=== PATIENT | male | born 1970 | race Caucasian/White ===

== ENCOUNTER → 2021-04-23 12:06 | Outpatient (CLI) | payer OTHER, SELFPAY ==
--- NOTE | 2021-04-23 | DI.MRI.S_ITS ---
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 Post-contrast short axis, long axis, and sagittal T1 spin echo with fat saturation through the forefoot. COMPARISON: None. FINDINGS: Image quality: Excellent. Bones and joints: A 3.3 mm T2 hyperintense/T1 hypointense lesion is seen at the medial base of the 1st distal phalanx. Heterogeneous signal in the hallux sesamoids without substantial edema, which likely reflects degenerative change. The remaining visualized osseous structures appear maintained. No metatarsal stress fractures. No significant metatarsophalangeal joint degeneration. Soft tissues: Confluent T2 hyperintense signal is seen along the medial aspect of the 1st metatarsal, measuring 3.3 x 1.4 x 0.5 cm (series 8, image 33), which may reflect edema/fluid. No contrast enhancement is appreciated to suggest an abscess. A 1.7 x 0.7 x 0.9 cm T1 hypointense/T2 hyperintense lesion is seen underlying the medial hallux sesamoid (series 8, image 31), which exhibits faint contrast enhancement and may represent phlegmon or hematoma. Intermediate signal is seen in the medial aspect of the 1st distal phalanx subcutaneous fat, which exhibits contrast enhancement and may reflect reactive edema versus an infectious process. The visualized plantar foot muscles demonstrate normal signal and bulk. The visualized flexor and extensor tendons appear intact, without tenosynovitis. The distal insertions of the peroneus brevis and longus tendons appear intact. The principal Lisfranc ligament appears intact. Sagittal images demonstrate no evidence for plantar plate tears. IMPRESSION: 1. 3.3 mm cystic change in the medial aspect of the 1st distal phalanx base, which may reflect an erosion. An infectious or posttraumatic process cannot be excluded. 2. Edematous change with contrast enhancement in the medial soft tissues of the 1st distal phalanx. Differential considerations include an infectious, posttraumatic, or inflammatory process. 3. Fluid signal along the medial aspect of the 1st metatarsal, which may reflect a hematoma or developing blister. 4. Lesion underlying the medial hallux sesamoid as detailed above, which may reflect phlegmon or hematoma. Dictated by: Zohaib Nichols M.D. on 04/23/2021 at 17:06 Approved by: Zohaib Nichols M.D. on 04/23/2021 at 17:25
== END ==
PROVIDERS: Referring Provider Podiatrist; Visit Provider Podiatrist
DX: D21.22 Benign neoplasm of connective and other soft tissue of left lower limb, including hip (principal)
CPT/HCPCS: 73720; A9579

== ENCOUNTER → 2021-05-11 09:20 | Outpatient (CLI) | payer OTHER, SELFPAY ==
[2021-05-11 10:24] LABS: Alanine Aminotransferase 30 IU/L (<50); Albumin 4.5 g/dL (3.5-5.0); Albumin Globulin Ratio 1.5 (1.0-2.8); Alkaline Phosphatase 65 U/L (38-126); Aspartate Aminotransferase 37 IU/L (17-59); BUN Creatinine Ratio 9.5 (6-22); Bilirubin Total 0.7 mg/dL (0.2-1.3); Blood Urea Nitrogen 9 mg/dL (9-20); Calcium 9.5 mg/dL (8.4-10.2); Carbon Dioxide 29 mmol/L (22-32); Chloride 104 mmol/L (98-107); Cholesterol 202 mg/dL (140-199); Estimated Glomerular Filt Rate > 60.0 mL/min (>60); Globulin 3.1 g/dL (1.7-4.1); Glucose 91 mg/dL (70-100); HDL Cholesterol 97 mg/dL (40-60); HEMOLYSIS < 15 (0-50); Hematocrit 44.6 % (41-53); Hemoglobin 15.2 g/dL (13.5-17.5); LDL Cholesterol Calculated 86 mg/dL (<100); Mean Corpuscular HGB Conc 34.1 % (30-36); Mean Corpuscular Hemoglobin 31.3 PG (26-34); Mean Corpuscular Volume 91.9 fL (80-100); Potassium 4.4 mmol/L (3.4-5.1); Red Blood Cell Count 4.86 X10^6/uL (4.5-5.9); Red Cell Distribution Width 13.3 % (11.6-14.8); Sodium 139 mmol/L (137-145); Total Protein 7.6 g/dL (6.3-8.2); Triglycerides 97 mg/dL (35-150)
[2021-05-11 10:52] LABS: Prostate Specific Antigen Scrn 0.654 ng/mL (0.1-4.0)
[2021-05-11 10:56] LABS: TSH w/ Reflex to FT4 1.18 uIU/mL (0.47-4.68)
[2021-05-11 11:29] LABS: Add Manual Diff / Slide Review YES
[2021-05-11 12:10] LABS: Neutrophils Absolute Manual 3710 /uL (3000-5900); Total Cells Counted 100
== END ==
PROVIDERS: PCP Family Medicine; Referring Provider Family Medicine; Visit Provider Family Medicine
DX: R00.2 Palpitations (principal); Z12.5 Encounter for screening for malignant neoplasm of prostate
CPT/HCPCS: 36415; 80053; 80061; 84443; 85007; 85025; G0103

== ENCOUNTER → 2021-06-04 11:35 | Outpatient (CLI) | payer OTHER, SELFPAY ==
--- NOTE | 2021-06-25 09:02 | PM.CARDMON.1 ---
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 Referral & Results Date Patient Seen: 06/04/21 Requesting provider: Anmol Dickens Indication: Palpitations Duration of monitoring (days): 7 Diary information: There was 1 patient triggered event and 1 patient diary entry Both these patient events were associated with sinus rhythm only Data: Minimum heart rate identified was 49 beats per minute at 00:48 on 06/06/2021 Maximum sinus heart rate was 151 beats per minute at 15:53 on 06/10/2021 Maximum overall heart rate was 156 beats per minute at 00:02 on 06/11/2021 during a 5 beat run of SVT Less than 1% of identified beats were ventricular or supraventricular ectopic in origin, which would classify them as rare. 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
== END ==
PROVIDERS: PCP Family Medicine; Referring Provider Family Medicine; Visit Provider Family Medicine
DX: R00.2 Palpitations (principal)
CPT/HCPCS: 93242; 93244

== ENCOUNTER → 2021-06-12 09:43 | Outpatient (CLI) | payer OTHER, SELFPAY ==
[2021-06-12 11:31] LABS: Add Manual Diff / Slide Review NO; Basophils Absolute Auto 0 /uL (0-100); Basophils Percent Auto 0.6 % (0-2); Eosinophils Absolute Auto 100 /uL (0-450); Hematocrit 41.4 % (41-53); Hemoglobin 14.1 g/dL (13.5-17.5); Lymphocytes Absolute Auto 2400 /uL (1100-4500); Lymphocytes Percent Auto 37.1 % (25-40); Mean Corpuscular Hemoglobin 30.9 PG (26-34); Mean Corpuscular Volume 90.9 fL (80-100); Monocytes Absolute Auto 600 /uL (0-900); Monocytes Percent Auto 9.2 % (3-14); Neutrophils Absolute Auto 3300 /uL (1500-7000); Neutrophils Percent Auto 51.1 % (50-75); Red Blood Cell Count 4.56 X10^6/uL (4.5-5.9); Red Cell Distribution Width 12.2 % (11.6-14.8); White Blood Cell Count 6.5 X10^3/uL (4.5-11.0)
== END ==
PROVIDERS: PCP Family Medicine; Referring Provider Family Medicine; Visit Provider Family Medicine
DX: D72.89 Other specified disorders of white blood cells (principal)
CPT/HCPCS: 36415; 85025

== ENCOUNTER → 2021-09-19 13:24 | Outpatient (CLI) | payer OTHER, SELFPAY ==
[2021-09-19 14:53] LABS: Basophils Absolute Auto 100 /uL (0-100); Basophils Percent Auto 0.9 % (0-2); Eosinophils Absolute Auto 100 /uL (0-450); Eosinophils Percent Auto 0.9 % (2-4); Hematocrit 45.3 % (41-53); Hemoglobin 15.4 g/dL (13.5-17.5); Lymphocytes Absolute Auto 2000 /uL (1100-4500); Lymphocytes Percent Auto 27.6 % (25-40); Mean Corpuscular HGB Conc 34.1 % (30-36); Mean Corpuscular Volume 90.9 fL (80-100); Monocytes Absolute Auto 500 /uL (0-900); Monocytes Percent Auto 6.9 % (3-14); Neutrophils Absolute Auto 4700 /uL (1500-7000); Neutrophils Percent Auto 63.7 % (50-75); Red Blood Cell Count 4.98 X10^6/uL (4.5-5.9); Red Cell Distribution Width 13.2 % (11.6-14.8); White Blood Cell Count 7.3 X10^3/uL (4.5-11.0)
[2021-09-19 15:13] LABS: Add Manual Diff / Slide Review SLIDE REVIEW
[2021-09-19 15:27] LABS: Alanine Aminotransferase 32 IU/L (<50); Albumin 4.7 g/dL (3.5-5.0); Albumin Globulin Ratio 1.6 (1.0-2.8); Alkaline Phosphatase 69 U/L (38-126); Aspartate Aminotransferase 38 IU/L (17-59); BUN Creatinine Ratio 7.9 (6-22); Bilirubin Total 0.7 mg/dL (0.2-1.3); Blood Urea Nitrogen 8 mg/dL (9-20); Carbon Dioxide 28 mmol/L (22-32); Chloride 102 mmol/L (98-107); Cholesterol 205 mg/dL (140-199); Estimated Glomerular Filt Rate > 60.0 mL/min (>60); Glucose 98 mg/dL (70-100); HDL Cholesterol 97 mg/dL (40-60); HEMOLYSIS < 15 (0-50); LDL Cholesterol Calculated 85 mg/dL (<100); Potassium 4.2 mmol/L (3.4-5.1); Sodium 139 mmol/L (137-145); Total Protein 7.7 g/dL (6.3-8.2); Triglycerides 115 mg/dL (35-150); VLDL Cholesterol Calculated 23 mg/dL (2-30)
[2021-09-19 15:35] LABS: Platelet Estimate Adequate on smear; RBC Morphology Normal Morphology
== END ==
PROVIDERS: PCP Family Medicine; Referring Provider Physician Assistant Medical; Visit Provider Physician Assistant Medical
DX: L70.0 Acne vulgaris (principal); L24.89 Irritant contact dermatitis due to other agents; L02.02 Furuncle of face; L73.2 Hidradenitis suppurativa; L73.0 Acne keloid; Z79.899 Other long term (current) drug therapy
CPT/HCPCS: 36415; 80053; 80061; 85025

== ENCOUNTER → 2021-10-30 09:25 | Outpatient (CLI) | payer OTHER, SELFPAY ==
[2021-10-30 10:50] LABS: Add Manual Diff / Slide Review NO; Basophils Absolute Auto 100 /uL (0-100); Basophils Percent Auto 1.1 % (0-2); Eosinophils Absolute Auto 100 /uL (0-450); Eosinophils Percent Auto 2.3 % (2-4); Hematocrit 43.6 % (41-53); Hemoglobin 14.9 g/dL (13.5-17.5); Lymphocytes Absolute Auto 1900 /uL (1100-4500); Lymphocytes Percent Auto 30.6 % (25-40); Mean Corpuscular HGB Conc 34.3 % (30-36); Mean Corpuscular Volume 90.5 fL (80-100); Monocytes Absolute Auto 500 /uL (0-900); Monocytes Percent Auto 8.4 % (3-14); Neutrophils Absolute Auto 3600 /uL (1500-7000); Neutrophils Percent Auto 57.6 % (50-75); Platelet Count 231 X10^3/uL (150-400); Red Blood Cell Count 4.82 X10^6/uL (4.5-5.9); White Blood Cell Count 6.2 X10^3/uL (4.5-11.0)
[2021-10-30 11:02] LABS: Alanine Aminotransferase 39 IU/L (<50); Albumin 4.5 g/dL (3.5-5.0); Albumin Globulin Ratio 1.3 (1.0-2.8); Alkaline Phosphatase 71 U/L (38-126); Aspartate Aminotransferase 49 IU/L (17-59); BUN Creatinine Ratio 7.3 (6-22); Bilirubin Total 0.5 mg/dL (0.2-1.3); Blood Urea Nitrogen 7 mg/dL (9-20); Calcium 9.4 mg/dL (8.4-10.2); Carbon Dioxide 30 mmol/L (22-32); Chloride 103 mmol/L (98-107); Cholesterol 193 mg/dL (140-199); Estimated Glomerular Filt Rate > 60 mL/min (>60); Globulin 3.4 g/dL (1.7-4.1); Glucose 103 mg/dL (70-100); HDL Cholesterol 74 mg/dL (40-60); HEMOLYSIS < 15 (0-50); LDL Cholesterol Calculated 99 mg/dL (<100); Potassium 4.2 mmol/L (3.4-5.1); Sodium 138 mmol/L (137-145); Total Protein 7.9 g/dL (6.3-8.2); Triglycerides 98 mg/dL (35-150)
[2021-10-30 11:13] LABS: LDL Cholesterol Direct 79 mg/dL (<100)
== END ==
PROVIDERS: PCP Family Medicine; Referring Provider Physician Assistant Medical; Visit Provider Physician Assistant Medical
DX: L70.0 Acne vulgaris (principal); L24.89 Irritant contact dermatitis due to other agents; L02.02 Furuncle of face; L02.12 Furuncle of neck; Z79.899 Other long term (current) drug therapy; L73.2 Hidradenitis suppurativa; L73.0 Acne keloid
CPT/HCPCS: 36415; 80053; 80061; 83721; 85025

== ENCOUNTER → 2021-11-23 09:49 | Outpatient (CLI) | payer OTHER, SELFPAY ==
[2021-11-23 10:54] LABS: Add Manual Diff / Slide Review NO; Basophils Absolute Auto 0 /uL (0-100); Eosinophils Absolute Auto 100 /uL (0-450); Eosinophils Percent Auto 3.1 % (2-4); Hematocrit 43.9 % (41-53); Hemoglobin 15.2 g/dL (13.5-17.5); Lymphocytes Absolute Auto 2100 /uL (1100-4500); Lymphocytes Percent Auto 45.5 % (25-40); Mean Corpuscular HGB Conc 34.7 % (30-36); Mean Corpuscular Hemoglobin 31.2 PG (26-34); Mean Corpuscular Volume 90.1 fL (80-100); Monocytes Absolute Auto 400 /uL (0-900); Monocytes Percent Auto 9.4 % (3-14); Neutrophils Absolute Auto 1900 /uL (1500-7000); Platelet Count 226 X10^3/uL (150-400); Red Blood Cell Count 4.87 X10^6/uL (4.5-5.9); Red Cell Distribution Width 13.4 % (11.6-14.8); White Blood Cell Count 4.7 X10^3/uL (4.5-11.0)
[2021-11-23 11:16] LABS: Alanine Aminotransferase 45 IU/L (<50); Albumin 4.5 g/dL (3.5-5.0); Albumin Globulin Ratio 1.3 (1.0-2.8); Alkaline Phosphatase 64 U/L (38-126); Aspartate Aminotransferase 57 IU/L (17-59); BUN Creatinine Ratio 8.3 (6-22); Bilirubin Total 0.5 mg/dL (0.2-1.3); Blood Urea Nitrogen 8 mg/dL (9-20); Calcium 9.5 mg/dL (8.4-10.2); Carbon Dioxide 28 mmol/L (22-32); Chloride 104 mmol/L (98-107); Cholesterol 237 mg/dL (140-199); Estimated Glomerular Filt Rate > 60 mL/min (>60); Globulin 3.6 g/dL (1.7-4.1); Glucose 97 mg/dL (70-100); HDL Cholesterol 69 mg/dL (40-60); HEMOLYSIS < 15 (0-50); LDL Cholesterol Calculated 144 mg/dL (<100); Potassium 4.3 mmol/L (3.4-5.1); Sodium 139 mmol/L (137-145); Total Protein 8.1 g/dL (6.3-8.2); Triglycerides 118 mg/dL (35-150)
[2021-11-23 14:02] LABS: LDL Cholesterol Direct 125 mg/dL (<100)
== END ==
PROVIDERS: PCP Family Medicine; Referring Provider Physician Assistant Medical; Visit Provider Physician Assistant Medical
DX: Z79.899 Other long term (current) drug therapy (principal)
CPT/HCPCS: 36415; 80053; 80061; 83721; 85025

== ENCOUNTER → 2021-12-26 08:05 | Outpatient (CLI) | payer OTHER, SELFPAY ==
[2021-12-26 08:49] LABS: Add Manual Diff / Slide Review NO; Basophils Absolute Auto 0 /uL (0-100); Basophils Percent Auto 0.9 % (0-2); Eosinophils Absolute Auto 100 /uL (0-450); Eosinophils Percent Auto 3.1 % (2-4); Hematocrit 41.8 % (41-53); Hemoglobin 14.2 g/dL (13.5-17.5); Lymphocytes Absolute Auto 1800 /uL (1100-4500); Lymphocytes Percent Auto 42.8 % (25-40); Mean Corpuscular HGB Conc 34.1 % (30-36); Mean Corpuscular Volume 90.8 fL (80-100); Monocytes Absolute Auto 500 /uL (0-900); Monocytes Percent Auto 12.9 % (3-14); Neutrophils Absolute Auto 1700 /uL (1500-7000); Neutrophils Percent Auto 40.3 % (50-75); Platelet Count 224 X10^3/uL (150-400); Red Cell Distribution Width 13.1 % (11.6-14.8); White Blood Cell Count 4.1 X10^3/uL (4.5-11.0)
[2021-12-26 09:13] LABS: Alanine Aminotransferase 59 IU/L (<50); Aspartate Aminotransferase 54 IU/L (17-59); BUN Creatinine Ratio 9.3 (6-22); Blood Urea Nitrogen 9 mg/dL (9-20); Cholesterol 204 mg/dL (140-199); Estimated Glomerular Filt Rate > 60 mL/min (>60); HDL Cholesterol 56 mg/dL (40-60); LDL Cholesterol Calculated 116 mg/dL (<100); Triglycerides 162 mg/dL (35-150)
== END ==
PROVIDERS: PCP Family Medicine; Referring Provider Physician Assistant Medical; Visit Provider Physician Assistant Medical
DX: Z79.899 Other long term (current) drug therapy (principal)
CPT/HCPCS: 36415; 80061; 82565; 84450; 84460; 84520; 85025

== ENCOUNTER → 2022-02-07 09:57 | Outpatient (CLI) | payer OTHER, SELFPAY ==
[2022-02-07 11:20] LABS: Basophils Absolute Auto 100 /uL (0-100); Basophils Percent Auto 1.3 % (0-2); Eosinophils Absolute Auto 100 /uL (0-450); Eosinophils Percent Auto 2.8 % (2-4); Hemoglobin 15.7 g/dL (13.5-17.5); Lymphocytes Absolute Auto 2000 /uL (1100-4500); Lymphocytes Percent Auto 44.3 % (25-40); Mean Corpuscular HGB Conc 34.8 % (30-36); Mean Corpuscular Hemoglobin 31.5 PG (26-34); Mean Corpuscular Volume 90.4 fL (80-100); Monocytes Absolute Auto 500 /uL (0-900); Monocytes Percent Auto 11.8 % (3-14); Neutrophils Absolute Auto 1800 /uL (1500-7000); Neutrophils Percent Auto 39.8 % (50-75); Red Blood Cell Count 4.97 X10^6/uL (4.5-5.9); Red Cell Distribution Width 13.5 % (11.6-14.8); White Blood Cell Count 4.4 X10^3/uL (4.5-11.0)
[2022-02-07 11:44] LABS: Alanine Aminotransferase 38 IU/L (<50); Aspartate Aminotransferase 38 IU/L (17-59); Blood Urea Nitrogen 9 mg/dL (9-20); Cholesterol 217 mg/dL (140-199); Estimated Glomerular Filt Rate > 60 mL/min (>60); HDL Cholesterol 61 mg/dL (40-60); LDL Cholesterol Calculated 139 mg/dL (<100); Triglycerides 85 mg/dL (35-150)
[2022-02-07 12:04] LABS: Add Manual Diff / Slide Review SLIDE REVIEW
[2022-02-07 12:05] LABS: Platelet Estimate Adeq
== END ==
PROVIDERS: PCP Family Medicine; Referring Provider Physician Assistant Medical; Visit Provider Physician Assistant Medical
DX: Z79.899 Other long term (current) drug therapy (principal)
CPT/HCPCS: 36415; 80061; 82565; 84450; 84460; 84520; 85025

== ENCOUNTER → 2022-02-28 07:50 | Outpatient (CLI) | payer OTHER, SELFPAY ==
[2022-02-28 08:29] LABS: Add Manual Diff / Slide Review NO; Basophils Absolute Auto 0 /uL (0-100); Basophils Percent Auto 1.2 % (0-2); Eosinophils Absolute Auto 200 /uL (0-450); Eosinophils Percent Auto 4.7 % (2-4); Hematocrit 44.9 % (41-53); Hemoglobin 15.3 g/dL (13.5-17.5); Lymphocytes Absolute Auto 1600 /uL (1100-4500); Mean Corpuscular HGB Conc 34.2 % (30-36); Mean Corpuscular Hemoglobin 31.1 PG (26-34); Mean Corpuscular Volume 90.8 fL (80-100); Monocytes Absolute Auto 400 /uL (0-900); Monocytes Percent Auto 9.9 % (3-14); Neutrophils Absolute Auto 1700 /uL (1500-7000); Neutrophils Percent Auto 42.2 % (50-75); Platelet Count 274 X10^3/uL (150-400); Red Blood Cell Count 4.94 X10^6/uL (4.5-5.9); White Blood Cell Count 3.9 X10^3/uL (4.5-11.0)
[2022-02-28 08:43] LABS: Alanine Aminotransferase 23 IU/L (<50); Aspartate Aminotransferase 33 IU/L (17-59); BUN Creatinine Ratio 12.2 (6-22); Blood Urea Nitrogen 12 mg/dL (9-20); Cholesterol 221 mg/dL (140-199); Estimated Glomerular Filt Rate > 60 mL/min (>60); HDL Cholesterol 52 mg/dL (40-60); LDL Cholesterol Calculated 143 mg/dL (<100); Triglycerides 129 mg/dL (35-150); VLDL Cholesterol Calculated 26 mg/dL (2-30)
== END ==
PROVIDERS: PCP Family Medicine; Referring Provider Physician Assistant Medical; Visit Provider Physician Assistant Medical
DX: L70.0 Acne vulgaris (principal); L24.89 Irritant contact dermatitis due to other agents; L02.223 Furuncle of chest wall; L02.222 Furuncle of back [any part, except buttock and flank]; L02.12 Furuncle of neck; L02.02 Furuncle of face; Z79.899 Other long term (current) drug therapy
CPT/HCPCS: 36415; 80061; 82565; 84450; 84460; 84520; 85025

== ENCOUNTER → 2022-03-21 07:45 | Outpatient (CLI) | payer OTHER, SELFPAY ==
[2022-03-21 09:07] LABS: Add Manual Diff / Slide Review NO; Basophils Absolute Auto 0 /uL (0-100); Basophils Percent Auto 0.9 % (0-2); Eosinophils Absolute Auto 200 /uL (0-450); Eosinophils Percent Auto 5.3 % (2-4); Hematocrit 43.2 % (41-53); Hemoglobin 15.2 g/dL (13.5-17.5); Lymphocytes Absolute Auto 1900 /uL (1100-4500); Lymphocytes Percent Auto 44.6 % (25-40); Mean Corpuscular HGB Conc 35.2 % (30-36); Mean Corpuscular Hemoglobin 31.8 PG (26-34); Mean Corpuscular Volume 90.4 fL (80-100); Monocytes Absolute Auto 500 /uL (0-900); Neutrophils Absolute Auto 1600 /uL (1500-7000); Neutrophils Percent Auto 37.2 % (50-75); Platelet Count 221 X10^3/uL (150-400); Red Blood Cell Count 4.78 X10^6/uL (4.5-5.9); Red Cell Distribution Width 13.2 % (11.6-14.8); White Blood Cell Count 4.2 X10^3/uL (4.5-11.0)
[2022-03-21 10:14] LABS: Alanine Aminotransferase 22 IU/L (<50); Aspartate Aminotransferase 31 IU/L (17-59); BUN Creatinine Ratio 7.4 (6-22); Blood Urea Nitrogen 7 mg/dL (9-20); Cholesterol 216 mg/dL (140-199); Estimated Glomerular Filt Rate > 60 mL/min (>60); HDL Cholesterol 56 mg/dL (40-60); LDL Cholesterol Calculated 137 mg/dL (<100); Triglycerides 117 mg/dL (35-150)
[2022-03-21 11:22] LABS: LDL Cholesterol Direct 111 mg/dL (<100)
== END ==
PROVIDERS: PCP Family Medicine; Referring Provider Physician Assistant Medical; Visit Provider Physician Assistant Medical
DX: L70.0 Acne vulgaris (principal); L24.89 Irritant contact dermatitis due to other agents; L02.223 Furuncle of chest wall; L02.222 Furuncle of back [any part, except buttock and flank]; L02.12 Furuncle of neck; L02.02 Furuncle of face; Z79.899 Other long term (current) drug therapy
CPT/HCPCS: 36415; 80061; 82565; 83721; 84450; 84460; 84520; 85025

== ENCOUNTER → 2022-05-09 07:57 | Outpatient (CLI) | payer OTHER, SELFPAY ==
[2022-05-09 09:16] LABS: Add Manual Diff / Slide Review NO; Basophils Absolute Auto 0 /uL (0-100); Basophils Percent Auto 0.8 % (0-2); Eosinophils Absolute Auto 100 /uL (0-450); Eosinophils Percent Auto 2.8 % (2-4); Hematocrit 44.4 % (41-53); Hemoglobin 15.1 g/dL (13.5-17.5); Lymphocytes Absolute Auto 1700 /uL (1100-4500); Lymphocytes Percent Auto 46.2 % (25-40); Mean Corpuscular Hemoglobin 30.9 PG (26-34); Mean Corpuscular Volume 90.9 fL (80-100); Monocytes Absolute Auto 300 /uL (0-900); Monocytes Percent Auto 8.4 % (3-14); Neutrophils Absolute Auto 1500 /uL (1500-7000); Neutrophils Percent Auto 41.8 % (50-75); Platelet Count 234 X10^3/uL (150-400); Red Blood Cell Count 4.89 X10^6/uL (4.5-5.9); Red Cell Distribution Width 13.4 % (11.6-14.8); White Blood Cell Count 3.6 X10^3/uL (4.5-11.0)
[2022-05-09 09:59] LABS: Aspartate Aminotransferase 35 IU/L (17-59); Blood Urea Nitrogen 10 mg/dL (9-20); Cholesterol 217 mg/dL (140-199); Estimated Glomerular Filt Rate > 60 mL/min (>60); HDL Cholesterol 62 mg/dL (40-60); LDL Cholesterol Calculated 129 mg/dL (<100); Triglycerides 131 mg/dL (35-150)
[2022-05-09 12:01] LABS: LDL Cholesterol Direct 107 mg/dL (<100)
== END ==
PROVIDERS: PCP Family Medicine; Referring Provider Physician Assistant Medical; Visit Provider Physician Assistant Medical
DX: Z79.899 Other long term (current) drug therapy (principal)
CPT/HCPCS: 36415; 80061; 82565; 83721; 84450; 84520; 85025

== ENCOUNTER → 2022-07-02 07:44 | Outpatient (CLI) | payer OTHER, SELFPAY ==
[2022-07-02 09:17] LABS: Add Manual Diff / Slide Review NO; Basophils Absolute Auto 0 /uL (0-100); Basophils Percent Auto 0.9 % (0-2); Eosinophils Absolute Auto 100 /uL (0-450); Eosinophils Percent Auto 3.2 % (2-4); Hematocrit 43.6 % (41-53); Hemoglobin 14.8 g/dL (13.5-17.5); Lymphocytes Absolute Auto 1900 /uL (1100-4500); Lymphocytes Percent Auto 44.9 % (25-40); Mean Corpuscular Hemoglobin 31.2 PG (26-34); Mean Corpuscular Volume 91.7 fL (80-100); Monocytes Absolute Auto 500 /uL (0-900); Monocytes Percent Auto 11.3 % (3-14); Neutrophils Absolute Auto 1700 /uL (1500-7000); Neutrophils Percent Auto 39.7 % (50-75); Platelet Count 265 X10^3/uL (150-400); Red Blood Cell Count 4.75 X10^6/uL (4.5-5.9); White Blood Cell Count 4.2 X10^3/uL (4.5-11.0)
[2022-07-02 09:25] LABS: Aspartate Aminotransferase 35 IU/L (17-59); BUN Creatinine Ratio 10.6 (6-22); Blood Urea Nitrogen 10 mg/dL (9-20); Cholesterol 245 mg/dL (140-199); Estimated Glomerular Filt Rate > 60 mL/min (>60); HDL Cholesterol 58 mg/dL (40-60); LDL Cholesterol Calculated 165 mg/dL (<100); Triglycerides 111 mg/dL (35-150)
[2022-07-02 09:37] LABS: LDL Cholesterol Direct 130 mg/dL (<100)
== END ==
PROVIDERS: PCP Family Medicine; Referring Provider Physician Assistant Medical; Visit Provider Physician Assistant Medical
DX: L70.0 Acne vulgaris (principal); L24.89 Irritant contact dermatitis due to other agents; L02.223 Furuncle of chest wall; L02.222 Furuncle of back [any part, except buttock and flank]; L02.12 Furuncle of neck; L02.02 Furuncle of face; Z79.899 Other long term (current) drug therapy; E78.00 Pure hypercholesterolemia, unspecified; K13.0 Diseases of lips
CPT/HCPCS: 36415; 80061; 82565; 83721; 84450; 84520; 85025

== ENCOUNTER → 2022-09-27 08:28 | Outpatient (CLI) | payer OTHER, SELFPAY ==
[2022-09-27 09:47] LABS: Add Manual Diff / Slide Review NO; Basophils Absolute Auto 0 /uL (0-100); Basophils Percent Auto 1.1 % (0-2); Eosinophils Absolute Auto 100 /uL (0-450); Eosinophils Percent Auto 2.4 % (2-4); Hematocrit 43.2 % (41-53); Hemoglobin 15.1 g/dL (13.5-17.5); Lymphocytes Absolute Auto 1600 /uL (1100-4500); Lymphocytes Percent Auto 41.5 % (25-40); Mean Corpuscular HGB Conc 34.9 % (30-36); Mean Corpuscular Volume 91.7 fL (80-100); Monocytes Absolute Auto 400 /uL (0-900); Monocytes Percent Auto 10.5 % (3-14); Neutrophils Absolute Auto 1700 /uL (1500-7000); Neutrophils Percent Auto 44.5 % (50-75); Platelet Count 246 X10^3/uL (150-400); Red Blood Cell Count 4.72 X10^6/uL (4.5-5.9); Red Cell Distribution Width 13.1 % (11.6-14.8); White Blood Cell Count 3.8 X10^3/uL (4.5-11.0)
[2022-09-27 10:03] LABS: Alanine Aminotransferase 38 IU/L (<50); Aspartate Aminotransferase 40 IU/L (17-59); BUN Creatinine Ratio 11.9 (6-22); Blood Urea Nitrogen 12 mg/dL (9-20); Cholesterol 228 mg/dL (140-199); Estimated Glomerular Filt Rate > 60 mL/min (>60); HDL Cholesterol 78 mg/dL (40-60); LDL Cholesterol Calculated 127 mg/dL (<100); Triglycerides 114 mg/dL (35-150)
== END ==
PROVIDERS: PCP Family Medicine; Referring Provider Physician Assistant Medical; Visit Provider Physician Assistant Medical
DX: Z79.899 Other long term (current) drug therapy (principal)
CPT/HCPCS: 36415; 80061; 82565; 84450; 84460; 84520; 85025

== ENCOUNTER → 2022-11-14 15:03 | Outpatient (CLI) | payer OTHER, SELFPAY ==
[2022-11-14 15:42] LABS: Add Manual Diff / Slide Review NO; Basophils Absolute Auto 0 /uL (0-100); Basophils Percent Auto 0.8 % (0-2); Eosinophils Absolute Auto 100 /uL (0-450); Hematocrit 43.2 % (41-53); Lymphocytes Absolute Auto 2000 /uL (1100-4500); Lymphocytes Percent Auto 37.1 % (25-40); Mean Corpuscular HGB Conc 34.8 % (30-36); Mean Corpuscular Hemoglobin 32.1 PG (26-34); Mean Corpuscular Volume 92.4 fL (80-100); Monocytes Absolute Auto 500 /uL (0-900); Neutrophils Absolute Auto 2700 /uL (1500-7000); Neutrophils Percent Auto 50.1 % (50-75); Platelet Count 265 X10^3/uL (150-400); Red Blood Cell Count 4.67 X10^6/uL (4.5-5.9); Red Cell Distribution Width 12.8 % (11.6-14.8); White Blood Cell Count 5.5 X10^3/uL (4.5-11.0)
[2022-11-14 16:13] LABS: Prostate Specific Antigen Scrn 0.439 ng/mL (0.1-4.0)
== END ==
PROVIDERS: PCP Family Medicine; Referring Provider Family Medicine; Visit Provider Family Medicine
DX: E78.5 Hyperlipidemia, unspecified (principal); R00.2 Palpitations; R03.0 Elevated blood-pressure reading, without diagnosis of hypertension; Z00.00 Encounter for general adult medical examination without abnormal findings; Z12.5 Encounter for screening for malignant neoplasm of prostate
CPT/HCPCS: 36415; 85025; G0103

== ENCOUNTER → 2023-04-14 15:23 | Outpatient (CLI) | payer OTHER, SELFPAY ==
[2023-04-16 17:28] LABS: Fecal Immunochemical Test Negative (Negative)
== END ==
PROVIDERS: PCP Family Medicine; Referring Provider Family Medicine; Visit Provider Family Medicine
DX: Z00.00 Encounter for general adult medical examination without abnormal findings (principal); Z12.11 Encounter for screening for malignant neoplasm of colon; E78.5 Hyperlipidemia, unspecified; R03.0 Elevated blood-pressure reading, without diagnosis of hypertension; R00.2 Palpitations
CPT/HCPCS: 82274

== ENCOUNTER → 2023-08-27 12:42 | Outpatient (CLI) | payer OTHER, SELFPAY ==
--- NOTE | 2023-08-27 12:44 | DI.MRI.S_ITS ---
PROCEDURE: MR FOOT LT WO/W CON INDICATIONS: Pain in left toe(s) Gout vs Ganglio TECHNIQUE: Multiphasic, multisequence MRI of the forefoot was performed, before and after intravenous contrast administration. COMPARISON: [facility], CR, XR FOOT 3+ VIEWS LEFT, 08/06/2023, 9:55. [facility], MR, MR FOOT LT WO/W CON, 04/23/2021, 12:17. FINDINGS: Image quality: Excellent. Bones and joints: No suspicious osseous enhancement. No bone marrow contusions or metatarsal stress fractures. Mild hallux valgus. [id number] degenerative changes are seen in the 1st metatarsophalangeal joint and at the interphalangeal joints of the toes. Cystic changes again seen adjacent to the 1st interphalangeal joint that are likely degenerative. No intraosseous lesions. Soft tissues: Subcutaneous masslike lesion is seen at the plantar medial aspect of the forefoot overlying the medial hallux sesamoid measuring approximately the 2.4 x 1.2 x 0.9 cm. There is mild heterogeneous postcontrast enhancement. When compared to the MRI from 04/23/2021, this lesion has possibly minimally increased in size. Trace fluid signal is seen at the plantar aspect of the foot adjacent to the 1st distal phalangeal base and the 5th metatarsal head that may represent trace adventitial bursal effusions. Trace fluid adjacent to the distal 5th metatarsal may be related to medial bunion and is decreased in size when compared to the prior MRI. The visualized plantar foot muscles demonstrate normal signal and bulk. Visualized flexor and extensor tendons appear intact, without tenosynovitis. The distal insertions of the peroneus brevis and longus tendons appear intact. The principal Lisfranc ligament appears intactSagittal images demonstrate no evidence for plantar plate tears. IMPRESSION: 1. Masslike hypointense lesion in the subcutaneous tissues at the plantar medial aspect of the foot adjacent to the medial hallux sesamoid has minimally increased in size when compared to the MRI from 04/23/2021. Findings are suspicious for a possible tenosynovial giant cell tumor or plantar fibroma versus possibly a gouty tophus or inflammatory nodule. 2. Scattered [id number] degenerative changes in the forefoot. Mild hallux valgus. 3. Suspected trace adventitial bursal effusions at the plantar aspect of the great toe and plantar to the 5th metatarsal head. Approved by: Samir Burgess M.D. on 08/27/2023 at 16:31
== END ==
PROVIDERS: PCP Family Medicine; Referring Provider Podiatrist; Visit Provider Podiatrist
DX: M20.12 Hallux valgus (acquired), left foot (principal); M79.675 Pain in left toe(s); R22.42 Localized swelling, mass and lump, left lower limb
CPT/HCPCS: 73720; A9579

== ENCOUNTER → 2024-10-14 09:14 | Outpatient (CLI) | payer OTHER, SELFPAY ==
[2024-10-14 10:41] LABS: Add Manual Diff / Slide Review NO; Basophils Absolute Auto 0 /uL (0-100); Basophils Percent Auto 1.1 % (0-2); Eosinophils Absolute Auto 100 /uL (0-450); Eosinophils Percent Auto 2.1 % (2-4); Hematocrit 45.6 % (41-53); Hemoglobin 15.7 g/dL (13.5-17.5); Lymphocytes Absolute Auto 1600 /uL (1100-4500); Mean Corpuscular HGB Conc 34.4 % (30-36); Mean Corpuscular Hemoglobin 32.2 PG (26-34); Mean Corpuscular Volume 93.8 fL (80-100); Monocytes Absolute Auto 400 /uL (0-900); Monocytes Percent Auto 9.3 % (3-14); Neutrophils Absolute Auto 2100 /uL (1500-7000); Neutrophils Percent Auto 49.5 % (50-75); Platelet Count 278 X10^3/uL (150-400); Red Blood Cell Count 4.86 X10^6/uL (4.5-5.9); Red Cell Distribution Width 12.6 % (11.6-14.8); White Blood Cell Count 4.1 X10^3/uL (4.5-11.0)
[2024-10-14 11:19] LABS: Hemoglobin A1C% w Est Avg Glu 4.6 % (4.0-6.0)
[2024-10-14 21:29] LABS: TSH w/ Reflex to FT4 0.75 uIU/mL (0.47-4.68)
[2024-10-15 00:13] LABS: HEMOLYSIS < 15 (0-50)
[2024-10-15 00:18] LABS: Alanine Aminotransferase 27 IU/L (<50); Albumin 4.6 g/dL (3.5-5.0); Albumin Globulin Ratio 1.7 (1.0-2.8); Alkaline Phosphatase 46 U/L (38-126); Aspartate Aminotransferase 37 IU/L (17-59); BUN Creatinine Ratio 10.8 (6-22); Bilirubin Total 0.9 mg/dL (0.2-1.3); Blood Urea Nitrogen 10 mg/dL (9-20); Calcium 9.8 mg/dL (8.4-10.2); Carbon Dioxide 23 mmol/L (22-32); Chloride 107 mmol/L (98-107); Cholesterol 229 mg/dL (140-199); Estimated Glomerular Filt Rate > 60 mL/min (>60); Globulin 2.7 g/dL (1.7-4.1); Glucose 89 mg/dL (70-99); HDL Cholesterol 109 mg/dL (40-60); LDL Cholesterol Calculated 107 mg/dL (<100); Potassium 4.7 mmol/L (3.4-5.1); Sodium 138 mmol/L (137-145); Total Protein 7.3 g/dL (6.3-8.2); Triglycerides 64 mg/dL (35-150)
[2024-10-15 01:34] LABS: Prostate Specific Antigen Scrn 0.307 ng/mL (0.1-4.0)
[2024-10-15 04:08] LABS: Apolipoprotein B 81 mg/dL (<90)
== END ==
PROVIDERS: PCP Family Medicine; Referring Provider Family Medicine; Visit Provider Family Medicine
DX: Z13.1 Encounter for screening for diabetes mellitus (principal); E78.5 Hyperlipidemia, unspecified; Z12.5 Encounter for screening for malignant neoplasm of prostate; R03.0 Elevated blood-pressure reading, without diagnosis of hypertension
CPT/HCPCS: 36415; 80053; 80061; 82172; 83036; 84443; 85025; G0103